=== PATIENT | male | born 2000 ===

== ENCOUNTER 2023-12-20 08:32 | Emergency (ER) | payer OTHER ==
[2023-12-20] MEDS: Albuterol 0.083% 2.5 MG/3 ML Neb Soln NEB ONE (08:49)
== END 2023-12-20 09:15 | disposition home or self-care (01) ==
LOC: CC.ED 08:32
DX: J45.901 Unspecified asthma with (acute) exacerbation (principal); Z79.899 Other long term (current) drug therapy
CPT/HCPCS: 94640; 99284; J7613-GY